=== PATIENT | female | born 1990 | race Caucasian/White ===

== ENCOUNTER 2016-09-26 11:57 | Emergency (ER) | payer OTHER, MEDICAID ==
[2016-09-26] MEDS ORDERED: Albuterol 0.083% 2.5 MG/3 ML Neb Soln NEB ONE (13:01)
[2016-09-26] MEDS ORDERED: Codeine/guaiFENesin 100mg-10 MG/5 ML Syrup 10 ML Cup PO ONE (13:06)
--- NOTE | 2016-09-26 13:07 | EDM.PDOC ---
[id number] REALLY SICK AND CAN'T KEEP ANYTHING DOWN 17 W Time Seen by Provider: 09/26/16 13:02 Source of Information: Reports: Patient History Limitations: Reports: No Limitations - History of Present Illness INITIAL COMMENTS - FREE TEXT/NARRATIVE: pt has a bad cough and she has been coughing until she vomits she has been coughing up green sputum. Onset: Gradual Duration: Day(s):, Other (pt doers not know whether she is running a temp. 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 Musculoskeletal History: L HAND REPAIR WITH HARDWARE - Infectious Disease History Infectious Disease History: Reports: Chicken Pox - Past Surgical History Other GI Surgeries/Procedures: UMBILICAL HERNIA Social & Family History - Tobacco Use Smoking Status *Q: Current Every Day Smoker Years of Tobacco use: 15 Packs/Tins Daily: 0.5 Used Tobacco, but Quit: No Second Hand Smoke Exposure: Yes - Caffeine Use Caffeine Use: Reports: Coffee, Tea - Alcohol Use Days Per Week of Alcohol Use: 1 Number of Drinks Per Day: 2 Total Drinks Per Week: 2 - Recreational Drug Use Recreational Drug Use: No Drug Use in Last 12 Months: No Recreational Drug Type: Reports: Oxycodone, Other (see below) Recreational Drug Use Frequency: Not Used In Over 6 Months ED ROS ENT - Review of Systems Review Of Systems: See Below Constitutional: Reports: Weakness HEENT: Reports: Other ( throat is sore and she is stuffed up and coughing alot. ) Respiratory: Reports: Shortness of Breath, Wheezing, Cough Cardiovascular: Reports: No Symptoms Endocrine: Reports: No Symptoms GI/Abdominal: Reports: Vomiting : Reports: No Symptoms Musculoskeletal: Reports: No Symptoms Skin: Reports: No Symptoms Neurological: Reports: No Symptoms ED EXAM, ENT - Physical Exam Exam: See Below Text/Narrative:: pt is coughing continuously and is vomiting when she coughes. Exam Limited By: No Limitations General Appearance: Alert, Anxious, Mild Distress Ears: Normal TMs Nose: Normal Inspection Mouth/Throat: Normal Inspection Head: Atraumatic Neck: Normal Inspection Respiratory/Chest: Wheezing, Other (pt is coughing alot. ) Cardiovascular: Regular Rate, Rhythm GI/Abdominal: Soft, Non-Tender Rectal (Female) Exam: Deferred Back: Normal Inspection Neurological: Alert, Oriented, Normal Cognition Course - Vital Signs Last Recorded V/S: Last Vital Signs Temp 98.9 C H 09/26/16 14:48 Pulse 93 09/26/16 14:48 Resp 14 09/26/16 14:48 BP 128/69 09/26/16 14:48 Pulse Ox 100 09/26/16 14:48 - Orders/Labs/Meds Labs: Laboratory Tests 09/26/16 09/26/16 Range/Units 13:07 13:07 WBC 8.6 (4.5-11.0) K/uL RBC 3.68 (3.30-5.50) M/uL Hgb 10.9 L (12.0-15.0) g/dL Hct 31.9 L (36.0-48.0) % MCV 87 (80-98) fL MCH 30 (27-31) pg MCHC 34 (32-36) % Plt Count 193 (150-400) K/uL Neut % (Auto) 77 H (36-66) % Lymph % (Auto) 12 L (24-44) % Nobles % (Auto) 11 H (2-6) % Eos % (Auto) 1 L (2-4) % Baso % (Auto) 0 (0-1) % Sodium 138 L (140-148) mmol/L Potassium 3.5 L (3.6-5.2) mmol/L Chloride 105 (100-108) mmol/L Carbon Dioxide 24 (21-32) mmol/L Anion Gap 12.5 (5.0-14.0) mmol/L BUN 7 (7-18) mg/dL Creatinine 0.6 (0.6-1.0) mg/dL Est Cr Clr Drug Dosing 118.95 mL/min Estimated GFR (MDRD) > 60 (>60) Glucose 78 (74-106) mg/dL Calcium 8.6 (8.5-10.1) mg/dL Meds: Medications Discontinued Medications Generic Name Dose Route Start Last Admin Trade Name Freq PRN Reason Stop Dose Admin Albuterol 2.5 mg 09/26/16 13:01 09/26/16 13:14 Proventil Neb Soln NEB 09/26/16 13:02 2.5 mg ONETIME ONE Administration Guaifenesin/Codeine Phosphate 10 ml 09/26/16 13:06 09/26/16 13:35 Robitussin Ac PO 09/26/16 13:07 10 ml ONETIME ONE Administration Sodium Chloride 1,000 mls @ 999 mls/hr 09/26/16 13:15 09/26/16 13:35 Normal Saline IV 999 mls/hr ASDIRECTED TORSTEN Administration Ceftriaxone Sodium 1 gm/ 50 mls @ 100 mls/hr 09/26/16 14:15 09/26/16 14:22 Sodium Chloride IV 09/26/16 14:44 100 mls/hr ONETIME ONE Administration Ondansetron HCl 4 mg 09/26/16 13:15 09/26/16 13:36 Zofran IVPUSH 09/26/16 13:16 4 mg ONETIME ONE Administration - Re-Assessments/Exams Free Text/Narrative Re-Assessment/Exam: 09/26/16 13:52 pt was given a neb which took some of the tightness away in her chest. She has still continued to cough / The wbc is not elevated but she does describe some purulent sputum. Departure - Departure Time of Disposition: 14:50 Disposition: Home, Self-Care 01 Condition: Fair Clinical Impression: Bronchitis, 18 weeks gestation of - Discharge Information Instructions: Acute Bronchitis, [id number] Referrals: Analisa Olivares CNM [Primary Care Provider] - Forms: ED Department Discharge Care Plan Goals: cool mist humidifier, push fluids, robitussin ac 2 tsp when she lies down to rest, cont zithromax, albuterol inhaler 2 puffs qid for the next 10 days,
[2016-09-26] MEDS ORDERED: Sodium Chloride 0.9% 1,000 ML IV SCH (13:15)
[2016-09-26] MEDS ORDERED: Ondansetron 4 MG/2 ML SDV IVPUSH ONE (13:15)
[2016-09-26] MEDS ORDERED: cefTRIAXone 1 GM in Sodium Chloride 0.9% 50 ML IV ONE ×2 (14:06→14:15)
[2016-09-26 14:50] VITALS: BP 128/69
== END 2016-09-26 14:55 | disposition home or self-care (01) ==
LOC: JP.ED 11:57
DX: O99.52 Diseases of the respiratory system complicating childbirth (principal); O21.9 Vomiting of pregnancy, unspecified; O99.333 Smoking (tobacco) complicating pregnancy, third trimester; Z3A.18 18 weeks gestation of pregnancy
CPT/HCPCS: 36415; 80048; 85025; 94640; 96361; 96365; 96375; 99284; A9270; J0696; J2405; J7040; J7050

== ENCOUNTER 2021-03-17 14:23 | Emergency (ER) | payer OTHER ==
[2021-03-17] MEDS ORDERED: Ketorolac 30 MG/ML SDV IVPUSH ONE (15:13)
[2021-03-17] MEDS ORDERED: Ondansetron 4 MG/2 ML SDV IVPUSH ONE (15:13)
[2021-03-17] MEDS ORDERED: Lactated Ringers 1,000 ML IV ONE (15:13)
--- NOTE | 2021-03-17 15:19 | EDM.PDOC ---
ED HPI GENERAL MEDICAL PROBLEM - General Chief Complaint: Abdominal Pain Stated Complaint: ABD PAIN, VOMITING Time Seen by Provider: 03/17/21 15:00 Source of Information: Reports: Patient, Family, Old Records History Limitations: Reports: No Limitations - History of Present Illness INITIAL COMMENTS - FREE TEXT/NARRATIVE: 30 yo female with a pHx of frequent UTI's has had dysuria for a couple weeks. More recently she has developed chills, nausea and vomiting, and low back pain. She was not seen for this illness before today. No blood in her emesis. No diarrhea. 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: Other (see below) (none) Abdominal Pain Score (Numeric/FACES): 9 - Related Data Allergies Allergy/AdvReac Type Severity Reaction Status Date / Time No Known Allergies Allergy Verified 06/15/13 09:52 Home Meds: Home Meds Calcium Carb/Vitamin D3/Vit K1 [Viactiv Soft Chew Tablet] 1 each PO DAILY 01/03/17 [History] Pnv No.95/Ferrous Fum/Folic AC [ Multivitamin Tablet] 1 each PO DAILY 01/03/17 [History] Ondansetron [Zofran ODT] 4 mg PO Q6H PRN #6 tab.dis 03/17/21 [Rx] cephALEXin [Cephalexin] 500 mg PO Q8H #14 tablet 03/17/21 [Rx] 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 Denies: Diarrhea, Hematemesis : Reports: Dysuria Musculoskeletal: Reports: Back Pain (low) Skin: Reports: No Symptoms ED EXAM, GI/ABD - Physical Exam Exam: See Below Exam Limited By: No Limitations General Appearance: Alert, WD/WN, Mild Distress Eyes: Bilateral: Normal Appearance Ears: Normal External Exam, Normal Canal, Hearing Grossly Normal Nose: Normal Inspection, No Blood Throat/Mouth: Normal Inspection, Normal Lips, Normal Oropharynx, Normal Voice, No Airway Compromise Head: Atraumatic, Normocephalic Neck: Normal Inspection Respiratory/Chest: No Respiratory Distress, Lungs Clear, Normal Breath Sounds, No Accessory Muscle Use Cardiovascular: Regular Rate, Rhythm, No Edema, Tachycardia GI/Abdominal Exam: Normal Bowel Sounds, Soft, Non-Tender, No Distention Back Exam: Normal Inspection, CVA Tenderness (R). No: CVA Tenderness (L) Extremities: Normal Inspection Neurological: Alert, Oriented, CN II-XII Intact, Normal Cognition, No Motor/Sensory Deficits Psychiatric: Normal Affect, Normal Mood Skin Exam: Warm, Dry, Intact, Normal Color, No Rash Course - Vital Signs Last Recorded V/S: Last Vital Signs Temp 36.9 C 03/17/21 15:07 Pulse 111 H 03/17/21 15:54 Resp 16 03/17/21 15:07 BP 107/63 03/17/21 15:54 Pulse Ox 100 03/17/21 15:54 - Orders/Labs/Meds Orders: Active Orders 24 hr Category Date Time Status CULTURE URINE [RM] Stat Lab 03/17/21 17:17 Received cefTRIAXone [Rocephin] 1 gm Med 03/17/21 17:15 Active Sodium Chloride 0.9% [Normal Saline AdvBag] 50 ml IV ONETIME Medication Orders Ceftriaxone Sodium 1 gm/ (Sodium Chloride) 50 mls @ 100 mls/hr IV ONETIME ONE Stop: 03/17/21 17:44 Labs: Laboratory Tests 03/17/21 03/17/21 03/17/21 Range/Units 15:25 15:25 16:47 WBC 4.8 (4.5-11.0) K/uL RBC 4.08 (3.30-5.50) M/uL Hgb 11.9 L (12.0-15.0) g/dL Hct 35.6 L (36.0-48.0) % MCV 87 (80-98) fL MCH 29 (27-31) pg MCHC 33 (32-36) % Plt Count 228 (150-400) K/uL Sodium 136 L (140-148) mmol/L Potassium 3.6 (3.6-5.2) mmol/L Chloride 103 (100-108) mmol/L Carbon Dioxide 22 (21-32) mmol/L Anion Gap 14.6 H (5.0-14.0) mmol/L BUN 6 L (7-18) mg/dL Creatinine 0.7 (0.6-1.0) mg/dL Est Cr Clr Drug Dosing 95.84 mL/min Estimated GFR (MDRD) > 60 (>60) Glucose 92 (74-106) mg/dL Calcium 8.9 (8.5-10.1) mg/dL Urine Color Yellow (YELLOW) Urine Appearance Slightly cloudy A (CLEAR) Urine pH 6.0 (5.0-8.0) Ur Specific Gila 1.020 (1.008-1.030) Urine Protein Negative (NEGATIVE) mg/dL Urine Glucose (UA) Negative (NEGATIVE) mg/dL Urine Ketones 40 H (NEGATIVE) mg/dL Urine Occult Blood Trace-intact H (NEGATIVE) Urine Nitrite Negative (NEGATIVE) Urine Bilirubin Negative (NEGATIVE) Urine Urobilinogen 0.2 (0.2-1.0) EU/dL Ur Leukocyte Esterase Small H (NEGATIVE) Urine RBC 5-10 H (0-5) Urine WBC 20-30 H (0-5) Ur Epithelial Cells Few Amorphous Sediment Not seen Urine Bacteria Many Urine Mucus Not seen Urine HCG, Qual 03/17/21 Range/Units 16:47 WBC (4.5-11.0) K/uL RBC (3.30-5.50) M/uL Hgb (12.0-15.0) g/dL Hct (36.0-48.0) % MCV (80-98) fL MCH (27-31) pg MCHC (32-36) % Plt Count (150-400) K/uL Sodium (140-148) mmol/L Potassium (3.6-5.2) mmol/L Chloride (100-108) mmol/L Carbon Dioxide (21-32) mmol/L Anion Gap (5.0-14.0) mmol/L BUN (7-18) mg/dL Creatinine (0.6-1.0) mg/dL Est Cr Clr Drug Dosing mL/min Estimated GFR (MDRD) (>60) Glucose (74-106) mg/dL Calcium (8.5-10.1) mg/dL Urine Color (YELLOW) Urine Appearance (CLEAR) Urine pH (5.0-8.0) Ur Specific Gila (1.008-1.030) Urine Protein (NEGATIVE) mg/dL Urine Glucose (UA) (NEGATIVE) mg/dL Urine Ketones (NEGATIVE) mg/dL Urine Occult Blood (NEGATIVE) Urine Nitrite (NEGATIVE) Urine Bilirubin (NEGATIVE) Urine Urobilinogen (0.2-1.0) EU/dL Ur Leukocyte Esterase (NEGATIVE) Urine RBC (0-5) Urine WBC (0-5) Ur Epithelial Cells Amorphous Sediment Urine Bacteria Urine Mucus Urine HCG, Qual Positive H Meds: Medications Generic Name Dose Route Start Last Admin Trade Name Freq PRN Reason Stop Dose Admin Ceftriaxone Sodium 1 gm/ 50 mls @ 100 mls/hr 03/17/21 17:15 Sodium Chloride IV 03/17/21 17:44 ONETIME ONE Discontinued Medications Generic Name Dose Route Start Last Admin Trade Name Freq PRN Reason Stop Dose Admin Acetaminophen 1,000 mg 03/17/21 17:10 Acetaminophen 500 Mg Tab PO 03/17/21 17:11 ONETIME ONE Lactated Ringer's 1,000 mls @ 1,000 mls/hr 03/17/21 15:13 03/17/21 15:30 Ringers, Lactated IV 03/17/21 16:12 1,000 mls/hr BOLUS ONE Administration Ketorolac Tromethamine 30 mg 03/17/21 15:13 03/17/21 17:11 Ketorolac 30 Mg/Ml Sdv IVPUSH 03/17/21 15:14 Not Given ONETIME ONE Ondansetron HCl 4 mg 03/17/21 15:13 03/17/21 15:30 Ondansetron 4 Mg/2 Ml Sdv IVPUSH 03/17/21 15:14 4 mg ONETIME ONE Administration Departure - Departure Time of Disposition: 17:45 Disposition: Home, Self-Care 01 Clinical Impression: First trimester , Cystitis, Mild dehydration Nausea and vomiting Qualifiers: Vomiting type: unspecified Qualified Code(s): R11.2 - Nausea with vomiting, unspecified - Discharge Information *PRESCRIPTION DRUG MONITORING PROGRAM REVIEWED*: Not Applicable *COPY OF PRESCRIPTION DRUG MONITORING REPORT IN PATIENT MANUELITO: Not Applicable Prescriptions: cephALEXin [Cephalexin] 500 mg PO Q8H #14 tablet Ondansetron [Zofran ODT] 4 mg PO Q6H PRN #6 tab.dis PRN Reason: Nausea Instructions: First Trimester of , [id number], Nausea and Vomiting, Adult, [id number], Urinary Tract Infection, Adult Referrals: Iris Espinoza MD [Primary Care Provider] - Forms: ED Department Discharge Additional Instructions: Use Zofran as needed for nausea control. Drink more fluids if able. Take cephalexin starting tomorrow night every 8 hrs until gone. Recheck with your doctor early next week for recheck. Acetaminophen is OK to take if needed, not allowed to use ibuprofen or Aleve or aspirin. Sepsis Event Note (ED) - Focused Exam Vital Signs: Vital Signs Temp Pulse Resp BP Pulse Ox 03/17/21 15:54 111 H 107/63 100 03/17/21 15:07 36.9 C 121 H 16 119/55 L 100 - My Orders Last 24 Hours: My Active Orders 03/17/21 17:15 cefTRIAXone [Rocephin] 1 gm Sodium Chloride 0.9% [Normal Saline AdvBag] 50 ml IV ONETIME 03/17/21 17:17 CULTURE URINE [RM] Stat - Assessment/Plan Last 24 Hours: My Active Orders 03/17/21 17:15 cefTRIAXone [Rocephin] 1 gm Sodium Chloride 0.9% [Normal Saline AdvBag] 50 ml IV ONETIME 03/17/21 17:17 CULTURE URINE [RM] Stat
[2021-03-17 15:54] VITALS: BP 107/63; PULSE 111
[2021-03-17] MEDS ORDERED: Acetaminophen 500 MG Tab PO ONE (17:10)
[2021-03-17] MEDS ORDERED: cefTRIAXone 1 GM in Sodium Chloride 0.9% 50 ML IV ONE (17:15)
== END 2021-03-17 18:10 | disposition home or self-care (01) ==
LOC: JP.ED 14:23
DX: O23.11 Infections of bladder in pregnancy, first trimester (principal); O21.9 Vomiting of pregnancy, unspecified; O99.281 Endocrine, nutritional and metabolic diseases complicating pregnancy, first trimester; E86.0 Dehydration; Z3A.00 Weeks of gestation of pregnancy not specified
CPT/HCPCS: 36415; 80048; 81001; 81025; 85027; 87086; 87088; 87186; 96365; 96375; 99284; J0696; J2405; J7120

== ENCOUNTER 2023-03-21 19:44 | Emergency (ER) | payer MEDICAID, OTHER ==
[2023-03-21 19:57] VITALS: BP 112/71; PULSE 96
[2023-03-21] MEDS ORDERED: Sodium Chloride 0.9% 1,000 ML IV ONE (20:29)
[2023-03-21 20:55] LABS: CORONAVIRUS COVID-19 NAA NEGATIVE (NEGATIVE); INFLUENZA A NAA NEGATIVE (NEGATIVE); INFLUENZA B NAA NEGATIVE (NEGATIVE); RESPIRATORY SYNCYTIAL VIR NAA NEGATIVE (NEGATIVE)
[2023-03-21] MEDS ORDERED: Cephalexin 250 MG Cap PO STA (20:55)
== END 2023-03-21 21:58 | disposition home or self-care (01) ==
LOC: JP.ED 19:44
DX: N61.0 Mastitis without abscess (principal); K52.9 Noninfective gastroenteritis and colitis, unspecified; F17.210 Nicotine dependence, cigarettes, uncomplicated
CPT/HCPCS: 0241U; 96360; 99284; A9270; J7030